=== PATIENT | female | born 1990 | race American Indian/Alaskan Native ===

== ENCOUNTER 2021-08-07 21:57 | Emergency (ER) | payer MEDICAID | END 2021-08-07 23:06 | disposition left against medical advice (07) | LOC: ED 21:57 | DX: O20.8 Other hemorrhage in early pregnancy (principal); Z53.21 Procedure and treatment not carried out due to patient leaving prior to being seen by health care provider; Z3A.10 10 weeks gestation of pregnancy ==

== ENCOUNTER 2022-01-15 12:41 | Outpatient (CLI) | payer MEDICAID ==
--- NOTE | 2022-01-15 16:16 | Ultrasound Report ---
ULTRASOUND OBSTETRIC LIMITED ULTRASOUND BIOPHYSICAL PROFILE INDICATION / CLINICAL INFORMATION: FWB. Clinical Gestational Age (GA) in weeks, days: 33, 4 TECHNIQUE: Transabdominal. COMPARISON: None available. FINDINGS: BREATHING MOVEMENT = 2 GROSS BODY MOVEMENT = 2 TONE = 2 QUALITATIVE AMNIOTIC FLUID VOLUME = 2 TOTAL BIOPHYSICAL SCORE = 8/8 HEART RATE (beats per minute): 140 AMNIOTIC FLUID INDEX (cm) = 9.3 (normal = 7-24 cm) PRESENTATION: Cephalic. ADDITIONAL FINDINGS: None. IMPRESSION: 1. Biophysical Score = 8/8 2. Viable intrauterine with heart tones 140 bpm. Signer Name: Stephen Barber MD Signed: 01/15/2022 4:11 PM Workstation Name: [id number]
[2022-01-15 18:23] VITALS: BP 109/57
== END 2022-01-15 18:30 | disposition home or self-care (01) ==
LOC: TRG 12:41 → APU 13:01 → TRG 18:30
PROVIDERS: ATTEND Student in an Organized Health Care Education/Training Program
DX: Z34.93 Encounter for supervision of normal pregnancy, unspecified, third trimester (principal); Z3A.33 33 weeks gestation of pregnancy
CPT/HCPCS: 76815; 76819